=== PATIENT | male | born 1990 | race Caucasian/White ===

== ENCOUNTER 2017-12-09 19:24 | Emergency (ER) | payer OTHER ==
[~2017-12-09] VITALS: Ht 167.6 cm; Wt 59.9 kg
[2017-12-09 19:45] VITALS: Ht 167.6 cm; Wt 59.9 kg
[2017-12-09 21:11] VITALS: BP 122/59
== END 2017-12-09 21:11 | disposition home or self-care (01) ==
LOC: ED 19:24
DX: J20.9 Acute bronchitis, unspecified (principal); B02.8 Zoster with other complications; F17.210 Nicotine dependence, cigarettes, uncomplicated
CPT/HCPCS: 99406